=== PATIENT | male | born 1985 | race Caucasian/White ===

== ENCOUNTER 2024-07-29 04:25 | Emergency (ER) | payer OTHER, SELFPAY ==
[2024-07-29] VITALS (7 sets, daily range): BP systolic 116–158; BP diastolic 75–97; PULSE 52–74; RESP 12–18; TEMP 36.3; O2SAT 96–99; BMI 29.8
--- NOTE | 2024-07-29 04:40 | W.ED.ABDPA2 ---
Documented by User: Arlet Thompson MD 07/29/24 05:35 HPI - Abdominal Pain General: Chief Complaint: Abdominal Pain Stated Complaint: ABD Pain Time Seen by Provider: 07/29/24 04:30 History of Present Illness: 39-year-old man who presents emergency room with abdominal pain. It started overnight over the last few hours. Right upper quadrant right sided abdominal pain. Some nausea with no vomiting. No fever. No previous abdominal surgeries. No serious health problems. Related Data Home Medications ?Medication ?Instructions ?Recorded ?Confirmed acetaminophen 325 mg tablet 650 mg PO QID PRN Fever Or Pain 07/29/24 07/29/24 (Tylenol) dextroamphetamine-amphetamine ER 10 mg PO QAM 07/29/24 07/29/24 10 mg 24hr capsule,extend release (Adderall XR) docusate sodium 100 mg capsule 100 mg PO DAILY 07/29/24 07/29/24 escitalopram oxalate 20 mg tablet 20 mg PO DAILY 07/29/24 07/29/24 (Lexapro) gabapentin 300 mg tablet,extended 300 mg PO PRN PRN Pain 07/29/24 07/29/24 release 24 hr quetiapine 300 mg tablet (Seroquel) 150 mg PO QPM 07/29/24 07/29/24 Previous Rx's ?Medication ?Instructions ?Recorded hydrocodone 5 mg-acetaminophen 325 1 tab PO Q6H PRN pain #15 tabs 07/29/24 mg tablet promethazine 25 mg tablet 25 mg PO Q6H PRN nausea and 07/29/24 vomiting #20 tabs Allergies Allergy/AdvReac Type Severity Reaction Status Date / Time No Known Allergies Allergy Verified 07/29/24 05:30 Review of Systems Narrative: Constitutional symptoms: Negative except as documented in HPI. Skin symptoms: Negative except as documented in HPI. Eye symptoms: Negative except as documented in HPI. ENMT symptoms: Negative except as documented in HPI. Respiratory symptoms: Negative except as documented in HPI. Cardiovascular symptoms: Negative except as documented in HPI. Gastrointestinal symptoms: Negative except as documented in HPI. Genitourinary symptoms: Negative except as documented in HPI. Musculoskeletal symptoms: Negative except as documented in HPI. Neurologic symptoms: Negative except as documented in HPI. Psychiatric symptoms: Negative except as documented in HPI. Endocrine symptoms: Negative except as documented in HPI. Physical Exam Narrative: EXAM NARRATIVE: General: Alert, no acute distress. Skin: Warm, dry. Head: Normocephalic, atraumatic. Neck: Supple, trachea midline. Eye: Extraocular movements are intact. Ears, nose, mouth and throat: mucosa moist. Cardiovascular: Regular, Normal peripheral perfusion. Respiratory: Lungs are clear to auscultation, respirations are non-labored, breath sounds are equal, Symmetrical chest wall expansion. Gastrointestinal: Soft, complains of right upper quadrant and right middle abdominal pain but does not have any reproducible pain to palpation., Non distended Musculoskeletal: Normal ROM, no deformity. Neurological: Alert and oriented, No focal neurological deficit observed. Psychiatric: Cooperative, appropriate mood & affect. Course Vital Signs: Vital signs: Vital Signs Temperature 97.3 F L 07/29/24 04:27 Pulse Rate 73 07/29/24 06:38 Respiratory Rate 15 07/29/24 06:38 Blood Pressure 116/77 07/29/24 06:38 Pulse Oximetry 98 07/29/24 06:38 MDM - Abdominal Pain Medical Decision Making Differential diagnosis for patient presenting with right upper quadrant abdominal pain including but not limited to and based on the above HPI, review of systems and physical exam: Cholelithiasis or cholecystitis. Hepatitis. Diverticulitis. Constipation. Ureterolithiasis. Urinary tract infection. Appendicitis. colitis. small bowel obstruction. crohn's flare. pancreatitis. gastritis. peptic ulcer. Aortic disection. Workup including imaging and lab work replaced based on the above differential, history and exam to evaluate differential diagnosis Lab Review: Laboratory results were reviewed and interpreted by myself the emergency room physician. No leukocytosis. No anemia. No renal failure. CRP is mildly elevated. Urinalysis is negative for hematuria or infection. Patient care transitioned to Dr. Gann at shift change awaiting read of the CT scan of the patient's abdomen. Lab Data 07/29/24 04:40 07/29/24 04:40 Labs/Radiology: Radiology Impressions Abdomen/Pelvis CT 07/29/24 04:54 IMPRESSION: Findings of which can be seen in cholecystitis. Recommend right upper quadrant ultrasound for further assessment. Gallbladder Ultrasound 07/29/24 07:57 IMPRESSION: 1. Cholelithiasis without acute cholecystitis. Without evidence for acute cholecystitis by ultrasound. No pericholecystic fluid. Gallbladder is slightly contracted. 2. No hepatobiliary dilatation. Laboratory Results WBC 9.42 10^3/uL (3.29-11.43) 07/29/24 04:40 RBC 4.74 10^6/uL (3.85-5.65) 07/29/24 04:40 Hgb 14.10 g/dL (11.27-16.99) 07/29/24 04:40 Hct 43.0 % (37-53) 07/29/24 04:40 MCV 90.7 fl (82-101) 07/29/24 04:40 MCH 29.7 pg (27-33) 07/29/24 04:40 MCHC 32.8 g/dL (30-55) 07/29/24 04:40 RDW 13.2 % (12.1-15.1) 07/29/24 04:40 Plt Count 297 10^3/cmm (157-399) 07/29/24 04:40 MPV 10.0 fL (7.4-10.4) 07/29/24 04:40 Neut % (Auto) 59.8 % 07/29/24 04:40 Lymph % (Auto) 29.3 % 07/29/24 04:40 [place] % (Auto) 6.6 % 07/29/24 04:40 Eos % (Auto) 3.5 % 07/29/24 04:40 Baso % (Auto) 0.5 % 07/29/24 04:40 Neut # (Auto) 5.63 10^3/uL (1.8-7.7) 07/29/24 04:40 Lymph # (Auto) 2.8 10^3/uL (0.8-4.8) 07/29/24 04:40 [place] # (Auto) 0.6 10^3/uL (0.2-0.9) 07/29/24 04:40 Eos # (Auto) 0.3 10^3/uL (0.0-0.8) 07/29/24 04:40 Baso # (Auto) 0.1 10^3/uL (0.0-0.1) 07/29/24 04:40 Nucleated RBC % (auto) 0 % 07/29/24 04:40 Nucleated RBCs # 0.0 /100WBC 07/29/24 04:40 Sodium 143 mmol/L (136-145) 07/29/24 04:40 Potassium 3.7 mmol/L (3.5-5.1) 07/29/24 04:40 Chloride 105 mmol/L (98-107) 07/29/24 04:40 Carbon Dioxide 25 mmol/L (22-29) 07/29/24 04:40 Anion Gap 16.7 (5-19) 07/29/24 04:40 BUN 10 mg/dL (6-20) 07/29/24 04:40 Creatinine 0.8 mg/dL (0.7-1.2) 07/29/24 04:40 GFR Calculation 108.2 mL/min (90-130) 07/29/24 04:40 Glucose 116 mg/dL (65-115) H 07/29/24 04:40 Calculated Osmolality 296 mOsm/kg (285-295) H 07/29/24 04:40 Lactic Acid 1.8 mmol/L (0.5-2.2) 07/29/24 04:40 Calcium 9.2 mg/dL (8.5-10.5) 07/29/24 04:40 Total Bilirubin 0.3 mg/dL (0.15-1.2) 07/29/24 04:40 AST 10 U/L (0-40) 07/29/24 04:40 ALT 8 U/L (0-41) 07/29/24 04:40 Alkaline Phosphatase 87 U/L (40-130) 07/29/24 04:40 C-Reactive Protein 6.0 mg/L (0.0-4.9) H 07/29/24 04:40 Total Protein 7.9 g/dL (6.6-8.7) 07/29/24 04:40 Albumin 4.2 g/dL (3.5-5.2) 07/29/24 04:40 Globulin 3.7 g/dL (1.3-4.6) 07/29/24 04:40 Lipase 31 U/L (13-60) 07/29/24 04:40 Urine Color Yellow (Yellow) 07/29/24 04:54 Urine Appearance Clear (CLEAR) 07/29/24 04:54 Urine pH 5.5 (5-7) 07/29/24 04:54 Ur Specific [place] 1.036 (1.005-1.030) H 07/29/24 04:54 Urine Protein Trace (Negative) A 07/29/24 04:54 Urine Glucose (UA) Negative (Normal) 07/29/24 04:54 Urine Ketones Negative (Negative) 07/29/24 04:54 Urine Blood Negative (Negative) 07/29/24 04:54 Urine Nitrate Negative (Negative) 07/29/24 04:54 Urine Bilirubin Negative (Negative) 07/29/24 04:54 Urine Urobilinogen 1.0 mg/dL (Negative) 07/29/24 04:54 Ur Leukocyte Esterase Negative (Negative) 07/29/24 04:54 Urine RBC 0-2 /hpf (0-2) 07/29/24 04:54 Urine WBC 0-5 /hpf (0-5) 07/29/24 04:54 Ur Squamous Epith Cells 0-5 /hpf (0-5) 07/29/24 04:54 Amorphous Sediment Not Reportable 07/29/24 04:54 Urine Bacteria None seen /hpf (NONE) 07/29/24 04:54 Hyaline Casts 3.71 /lpf 07/29/24 04:54 Discharge Plan Discharge Patient Disposition: Home Clinical Impression: Cholelithiasis, Biliary colic Condition: Stable Prescriptions: New hydrocodone-acetaminophen 5-325 mg tablet 1 tab PO Q6H PRN (Reason: pain) Qty: 15 0RF promethazine 25 mg tablet 25 mg PO Q6H PRN (Reason: nausea and vomiting) Qty: 20 0RF No Action acetaminophen [Tylenol] 325 mg Tablet 650 mg PO QID PRN (Reason: Fever Or Pain) quetiapine [Seroquel] 300 mg Tablet 150 mg PO QPM docusate sodium [Doculax] 100 mg Capsule 100 mg PO DAILY escitalopram oxalate [Lexapro] 20 mg Tablet 20 mg PO DAILY gabapentin 300 mg Tablet Extended Release 24 Hr 300 mg PO PRN PRN (Reason: Pain) dextroamphetamine-amphetamine [Adderall XR] 10 mg Capsule,Extended Release 24hr 10 mg PO QAM Discharge Orders: Discharge ED (Routine); Ordered 07/29/24 Ordered By: Senthil Gann Discharge Diet: As Directed Discharge Activity: Resume usual activity Patient Instructions: Biliary Colic (ED), Gallstones (ED), Opioid Safety, Pain Management Activity Restrictions/Additional Instructions: Thank you for choosing [facility] for your healthcare needs today. It is very important that you follow up as instructed or that you return to the Emergency Department should you have concerns or if your condition changes or worsens in any way. You were seen in the emergency room with complaints of right upper quadrant abdominal pain. CT showed increasing size of your gallbladder. Ultrasound shows there is a number of stones in the gallbladder but there is no thickening of the gallbladder wall or fluid around the gallbladder no signs of acute infection. Your laboratory tests were otherwise unremarkable. Based on your presenting history and the imaging finding is likely that your symptoms are result of the gallstones and the pain is biliary colic (pain from a irritated gallbladder). Recommend you avoid red meat tomato-based products citrus fruits and dairy products as all of these things can aggravate the gallbladder. When you return home for your primary care physician for referral for treatment options for your gallstones. Print Language: [place] Sign Out Sign Out Data: Patient Sign Out occurred on 07/29/24 at 07:11. Patient's care was discussed, and care was transferred from Arlet Thompson MD to Senthil Gann DO. 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 Fwd Documented by User: Senthil Gann DO 07/29/24 08:49 HPI - Abdominal Pain General: Chief Complaint: Abdominal Pain Stated Complaint: ABD Pain Time Seen by Provider: 07/29/24 04:30 Related Data Home Medications ?Medication ?Instructions ?Recorded ?Confirmed acetaminophen 325 mg tablet 650 mg PO QID PRN Fever Or Pain 07/29/24 07/29/24 (Tylenol) dextroamphetamine-amphetamine ER 10 mg PO QAM 07/29/24 07/29/24 10 mg 24hr capsule,extend release (Adderall XR) docusate sodium 100 mg capsule 100 mg PO DAILY 07/29/24 07/29/24 escitalopram oxalate 20 mg tablet 20 mg PO DAILY 07/29/24 07/29/24 (Lexapro) gabapentin 300 mg tablet,extended 300 mg PO PRN PRN Pain 07/29/24 07/29/24 release 24 hr quetiapine 300 mg tablet (Seroquel) 150 mg PO QPM 07/29/24 07/29/24 Previous Rx's ?Medication ?Instructions ?Recorded hydrocodone 5 mg-acetaminophen 325 1 tab PO Q6H PRN pain #15 tabs 07/29/24 mg tablet promethazine 25 mg tablet 25 mg PO Q6H PRN nausea and 07/29/24 vomiting #20 tabs Allergies Allergy/AdvReac Type Severity Reaction Status Date / Time No Known Allergies Allergy Verified 07/29/24 05:30 Course Vital Signs: Vital signs: Vital Signs Temperature 97.3 F L 07/29/24 04:27 Pulse Rate 73 07/29/24 06:38 Respiratory Rate 15 07/29/24 06:38 Blood Pressure 116/77 07/29/24 06:38 Pulse Oximetry 98 07/29/24 06:38 MDM - Abdominal Pain Medical Decision Making Differential diagnosis for patient presenting with right upper quadrant abdominal pain including but not limited to and based on the above HPI, review of systems and physical exam: Cholelithiasis or cholecystitis. Hepatitis. Diverticulitis. Constipation. Ureterolithiasis. Urinary tract infection. Appendicitis. colitis. small bowel obstruction. crohn's flare. pancreatitis. gastritis. peptic ulcer. Aortic disection. Workup including imaging and lab work replaced based on the above differential, history and exam to evaluate differential diagnosis Lab Review: Laboratory results were reviewed and interpreted by myself the emergency room physician. No leukocytosis. No anemia. No renal failure. CRP is mildly elevated. Urinalysis is negative for hematuria or infection. Patient care transitioned to Dr. Gann at shift change awaiting read of the CT scan of the patient's abdomen. Care assumed at change of shift CT question possible acute cholecystitis white count liver functions. No. As per recommendation of CT read ultrasound gallbladder was done no dilation of common bile duct no hydrops no thickening of the wall there is gallstones noted. Reviewed with the patient dietary adjustments to avoid recurrent biliary colic. He is from [place] and is traveling through this area. Will discharge home with antiemetics pain medications dietary adjustment recommendations and encouraged him to follow-up with his primary care doctor when he gets home. He can get the records from this visit for the imaging. Discussed with him he may have further symptoms he can use pain and antiemetics as needed and be wary of dietary triggers. Medical Records I reviewed the patient's medical records. Lab Data I reviewed the patient's lab results. 07/29/24 04:40 07/29/24 04:40 Labs/Radiology: Radiology Impressions Abdomen/Pelvis CT 07/29/24 04:54 IMPRESSION: Findings of which can be seen in cholecystitis. Recommend right upper quadrant ultrasound for further assessment. Gallbladder Ultrasound 07/29/24 07:57 IMPRESSION: 1. Cholelithiasis without acute cholecystitis. Without evidence for acute cholecystitis by ultrasound. No pericholecystic fluid. Gallbladder is slightly contracted. 2. No hepatobiliary dilatation. Laboratory Results WBC 9.42 10^3/uL (3.29-11.43) 07/29/24 04:40 RBC 4.74 10^6/uL (3.85-5.65) 07/29/24 04:40 Hgb 14.10 g/dL (11.27-16.99) 07/29/24 04:40 Hct 43.0 % (37-53) 07/29/24 04:40 MCV 90.7 fl (82-101) 07/29/24 04:40 MCH 29.7 pg (27-33) 07/29/24 04:40 MCHC 32.8 g/dL (30-55) 07/29/24 04:40 RDW 13.2 % (12.1-15.1) 07/29/24 04:40 Plt Count 297 10^3/cmm (157-399) 07/29/24 04:40 MPV 10.0 fL (7.4-10.4) 07/29/24 04:40 Neut % (Auto) 59.8 % 07/29/24 04:40 Lymph % (Auto) 29.3 % 07/29/24 04:40 [place] % (Auto) 6.6 % 07/29/24 04:40 Eos % (Auto) 3.5 % 07/29/24 04:40 Baso % (Auto) 0.5 % 07/29/24 04:40 Neut # (Auto) 5.63 10^3/uL (1.8-7.7) 07/29/24 04:40 Lymph # (Auto) 2.8 10^3/uL (0.8-4.8) 07/29/24 04:40 [place] # (Auto) 0.6 10^3/uL (0.2-0.9) 07/29/24 04:40 Eos # (Auto) 0.3 10^3/uL (0.0-0.8) 07/29/24 04:40 Baso # (Auto) 0.1 10^3/uL (0.0-0.1) 07/29/24 04:40 Nucleated RBC % (auto) 0 % 07/29/24 04:40 Nucleated RBCs # 0.0 /100WBC 07/29/24 04:40 Sodium 143 mmol/L (136-145) 07/29/24 04:40 Potassium 3.7 mmol/L (3.5-5.1) 07/29/24 04:40 Chloride 105 mmol/L (98-107) 07/29/24 04:40 Carbon Dioxide 25 mmol/L (22-29) 07/29/24 04:40 Anion Gap 16.7 (5-19) 07/29/24 04:40 BUN 10 mg/dL (6-20) 07/29/24 04:40 Creatinine 0.8 mg/dL (0.7-1.2) 07/29/24 04:40 GFR Calculation 108.2 mL/min (90-130) 07/29/24 04:40 Glucose 116 mg/dL (65-115) H 07/29/24 04:40 Calculated Osmolality 296 mOsm/kg (285-295) H 07/29/24 04:40 Lactic Acid 1.8 mmol/L (0.5-2.2) 07/29/24 04:40 Calcium 9.2 mg/dL (8.5-10.5) 07/29/24 04:40 Total Bilirubin 0.3 mg/dL (0.15-1.2) 07/29/24 04:40 AST 10 U/L (0-40) 07/29/24 04:40 ALT 8 U/L (0-41) 07/29/24 04:40 Alkaline Phosphatase 87 U/L (40-130) 07/29/24 04:40 C-Reactive Protein 6.0 mg/L (0.0-4.9) H 07/29/24 04:40 Total Protein 7.9 g/dL (6.6-8.7) 07/29/24 04:40 Albumin 4.2 g/dL (3.5-5.2) 07/29/24 04:40 Globulin 3.7 g/dL (1.3-4.6) 07/29/24 04:40 Lipase 31 U/L (13-60) 07/29/24 04:40 Urine Color Yellow (Yellow) 07/29/24 04:54 Urine Appearance Clear (CLEAR) 07/29/24 04:54 Urine pH 5.5 (5-7) 07/29/24 04:54 Ur Specific [place] 1.036 (1.005-1.030) H 07/29/24 04:54 Urine Protein Trace (Negative) A 07/29/24 04:54 Urine Glucose (UA) Negative (Normal) 07/29/24 04:54 Urine Ketones Negative (Negative) 07/29/24 04:54 Urine Blood Negative (Negative) 07/29/24 04:54 Urine Nitrate Negative (Negative) 07/29/24 04:54 Urine Bilirubin Negative (Negative) 07/29/24 04:54 Urine Urobilinogen 1.0 mg/dL (Negative) 07/29/24 04:54 Ur Leukocyte Esterase Negative (Negative) 07/29/24 04:54 Urine RBC 0-2 /hpf (0-2) 07/29/24 04:54 Urine WBC 0-5 /hpf (0-5) 07/29/24 04:54 Ur Squamous Epith Cells 0-5 /hpf (0-5) 07/29/24 04:54 Amorphous Sediment Not Reportable 07/29/24 04:54 Urine Bacteria None seen /hpf (NONE) 07/29/24 04:54 Hyaline Casts 3.71 /lpf 07/29/24 04:54 All radiology interpretation(s) finalized by discharge Discharge Plan Discharge Patient Disposition: Home Clinical Impression: Cholelithiasis, Biliary colic Condition: Stable Prescriptions: New hydrocodone-acetaminophen 5-325 mg tablet 1 tab PO Q6H PRN (Reason: pain) Qty: 15 0RF promethazine 25 mg tablet 25 mg PO Q6H PRN (Reason: nausea and vomiting) Qty: 20 0RF No Action acetaminophen [Tylenol] 325 mg Tablet 650 mg PO QID PRN (Reason: Fever Or Pain) quetiapine [Seroquel] 300 mg Tablet 150 mg PO QPM docusate sodium [Doculax] 100 mg Capsule 100 mg PO DAILY escitalopram oxalate [Lexapro] 20 mg Tablet 20 mg PO DAILY gabapentin 300 mg Tablet Extended Release 24 Hr 300 mg PO PRN PRN (Reason: Pain) dextroamphetamine-amphetamine [Adderall XR] 10 mg Capsule,Extended Release 24hr 10 mg PO QAM Discharge Orders: Discharge ED (Routine); Ordered 07/29/24 Ordered By: Senthil Gann Discharge Diet: As Directed Discharge Activity: Resume usual activity Patient Instructions: Biliary Colic (ED), Gallstones (ED), Opioid Safety, Pain Management Activity Restrictions/Additional Instructions: Thank you for choosing [facility] for your healthcare needs today. It is very important that you follow up as instructed or that you return to the Emergency Department should you have concerns or if your condition changes or worsens in any way. You were seen in the emergency room with complaints of right upper quadrant abdominal pain. CT showed increasing size of your gallbladder. Ultrasound shows there is a number of stones in the gallbladder but there is no thickening of the gallbladder wall or fluid around the gallbladder no signs of acute infection. Your laboratory tests were otherwise unremarkable. Based on your presenting history and the imaging finding is likely that your symptoms are result of the gallstones and the pain is biliary colic (pain from a irritated gallbladder). Recommend you avoid red meat tomato-based products citrus fruits and dairy products as all of these things can aggravate the gallbladder. When you return home for your primary care physician for referral for treatment options for your gallstones. Print Language: [place] Sign Out Sign Out Data: Patient Sign Out occurred on 07/29/24 at 07:11. Patient's care was discussed, and care was transferred from Arlet Thompson MD to Senthil Gann DO. 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
[2024-07-29 04:49] LABS: Basophils # 0.1 10^3/uL (0.0-0.1); Basophils % 0.5 %; Eosinophils # 0.3 10^3/uL (0.0-0.8); Eosinophils % 3.5 %; Lymphocytes # 2.8 10^3/uL (0.8-4.8); Lymphocytes % 29.3 %; Mean Corpuscular HGB Conc 32.8 g/dL (30-55); Mean Corpuscular Hemoglobin 29.7 pg (27-33); Mean Corpuscular Volume 90.7 fl (82-101); Monocytes # 0.6 10^3/uL (0.2-0.9); Monocytes % 6.6 %; Neutrophils # 5.63 10^3/uL (1.8-7.7); Neutrophils % 59.8 %; Nucleated Red Blood Cells % 0 %; Platelet Count 297 10^3/cmm (157-399); Red Blood Count 4.74 10^6/uL (3.85-5.65); Red Cell Distribution Width 13.2 % (12.1-15.1); White Blood Count 9.42 10^3/uL (3.29-11.43)
--- NOTE | 2024-07-29 04:54 | CTR_ITS ---
PROCEDURE INFORMATION: Exam: CT Abdomen And Pelvis With Contrast Exam date and time: 07/29/2024 5:17 AM Age: 39 years old Clinical indication: Abdominal pain; Epigastric TECHNIQUE: Imaging protocol: Computed tomography of the abdomen and pelvis with contrast. Radiation optimization: All CT scans at this facility use at least one of these dose optimization techniques: automated exposure control; mA and/or kV adjustment per patient size (includes targeted exams where dose is matched to clinical indication); or iterative reconstruction. Contrast material: OMNI 350; Contrast volume: 100 ml; Contrast route: INTRAVENOUS (IV); COMPARISON: No relevant prior studies available. RADIATION DOSE METRICS: Total DLP (mGy-cm): 893.83 FINDINGS: Lungs: Lung bases are clear as visualized. Heart: Base of heart is unremarkable as visualized. Liver: Normal. No mass. Gallbladder and biliary ducts: Cholelithiasis. Perhaps mild gallbladder wall thickening. Likely sludge within the gallbladder. Pancreas: Normal. No ductal dilation. Spleen: Normal. No splenomegaly. Adrenal glands: Normal. No mass. Kidneys and ureters: Normal. No hydronephrosis. Stomach and bowel: [id number] colonic stool burden. Appendix: No evidence of appendicitis. Intraperitoneal space: Unremarkable. No free air. No significant fluid collection. Vasculature: Unremarkable. No abdominal aortic aneurysm. Lymph nodes: Unremarkable. No enlarged lymph nodes. Urinary bladder: Unremarkable as visualized. Reproductive: Unremarkable as visualized. Bones/joints: Mild degenerative change of the visualized osseous structures. Soft tissues: Miniscule fat containing umbilical hernia. CT/CT abdomen pelvis w con* [id number] IMPRESSION: Findings of which can be seen in cholecystitis. Recommend right upper quadrant ultrasound for further assessment.
[2024-07-29] MEDS: ondansetron 2 mg/ML SDV 2 mL 4 MG IVP (04:59)
[2024-07-29] MEDS: ketorolac 30 mg/mL INJ IVP (04:59)
[2024-07-29 05:07] LABS: Bilirubin Urine Negative (Negative); Blood Urine Negative (Negative); Glucose Urine UA Negative (Normal); Ketones Urine Negative (Negative); Leukocyte Esterase Urine Negative (Negative); Nitrate Urine Negative (Negative); Protein Urine Trace (Negative); Urine Appearance Clear (CLEAR); Urine Color Yellow (Yellow); pH Urine 5.5 (5-7)
[2024-07-29 05:07] LABS: Alanine Aminotransferase 8 U/L (0-41); Albumin Level 4.2 g/dL (3.5-5.2); Alkaline Phosphatase 87 U/L (40-130); Anion Gap 16.7 (5-19); Aspartate Amino Transferase 10 U/L (0-40); Blood Urea Nitrogen 10 mg/dL (6-20); Calcium 9.2 mg/dL (8.5-10.5); Carbon Dioxide 25 mmol/L (22-29); Chloride 105 mmol/L (98-107); Creatinine Clr Calc Pharmacy 153.1346; Globulin 3.7 g/dL (1.3-4.6); Glomerular Filtration Rate 108.2 mL/min (90-130); Glucose 116 mg/dL (65-115); Lipase 31 U/L (13-60); Osmolality Calculated 296 mOsm/kg (285-295); Potassium 3.7 mmol/L (3.5-5.1); Sodium 143 mmol/L (136-145); Total Bilirubin 0.3 mg/dL (0.15-1.2); Total Protein 7.9 g/dL (6.6-8.7)
[2024-07-29 05:08] LABS: Lactic Sepsis W/Reflex 1.8 mmol/L (0.5-2.2)
[2024-07-29 05:12] LABS: Bacteria Urine None Seen /hpf; Hyaline Casts Urine 3.71 /lpf; RBC Urine 0-2 /hpf (0-2); Squamous Epithelial Cell Urine 0-5 /hpf (0-5); WBC Urine 0-5 /hpf (0-5)
[2024-07-29] MEDS: iohexol 350 mg/mL 500 mL Btl (per mL) IV (05:22)
[2024-07-29 05:29] LABS: Specific Gravity, Urine 1.036 (1.005-1.030)
--- NOTE | 2024-07-29 07:57 | US_ITS ---
WS: [id number] RIGHT UPPER QUADRANT ULTRASOUND HISTORY: Right upper quadrant pain, biliary colic COMPARISON: CT abdomen 07/29/2024 Liver: 15.8 cm in length. Normal size liver and echogenicity. No bile duct dilatation or mass. Portal Vein: Normal hepatopetal flow with monophasic waveform. Gallbladder: Mildly contracted gallbladder. Numerous stones within the gallbladder. No pericholecystic fluid. Gallbladder wall is 2 mm. CBD: 0.4 cm Pancreas: Poorly visualized due to bowel gas. Right kidney: 10.5 cm in length. Normal size and echogenicity. No hydronephrosis or mass. Aorta and IVC: Unremarkable abdominal aorta and IVC. No ascites. US/US gall bladder [id number] IMPRESSION: 1. Cholelithiasis without acute cholecystitis. Without evidence for acute chol ecystitis by ultrasound. No pericholecystic fluid. Gallbladder is slightly cont racted. 2. No hepatobiliary dilatation.
== END 2024-07-29 10:14 | disposition home or self-care (01) ==
PROVIDERS: Emergency Medicine; Emergency Provider Family Medicine
DX: K80.20 Calculus of gallbladder without cholecystitis without obstruction (principal); K80.50 Calculus of bile duct without cholangitis or cholecystitis without obstruction
CPT/HCPCS: 36415; 74177; 76705; 80053; 81001; 83605; 83690; 85025; 86140; 96374; 96375; 99285; J1885; J2405